=== PATIENT | male | born 1985 | race Hispanic/Latino ===

== ENCOUNTER 2018-08-06 17:34 | Emergency (ER) | payer SELFPAY ==
[2018-08-06] MEDS ORDERED: Dexamethasone 10 MG/ML VIAL ONE (17:57)
[2018-08-06] MEDS ORDERED: Acetaminophen 500 MG TAB ONE (17:57)
[2018-08-06] MEDS ORDERED: Ketorolac Tromethamine 60 MG/2 ML VIAL ONE (17:57)
[2018-08-06] MEDS ORDERED: AMOXicillin 250 MG CAP ONE (18:15)
== END 2018-08-06 18:20 | disposition home or self-care (01) ==
LOC: MADERS 17:34
DX: J02.9 Acute pharyngitis, unspecified (principal)
CPT/HCPCS: 87081; 87430; 87804; 96372; J1100; J1885

== ENCOUNTER 2018-12-25 14:13 | Outpatient (CLI) | payer OTHER ==
--- NOTE | 2018-12-25 14:27 | RAD ---
EXAM: Chest 2 views: HISTORY: Chest pain for 3 months COMPARISON: None. FINDINGS: There is a normal-sized cardiomediastinal silhouette. There is no evidence of consolidation, mass, or pleural effusion. The bones are unremarkable. IMPRESSION: No evidence of acute cardiopulmonary disease
== END 2018-12-25 14:14 | disposition home or self-care (01) ==
LOC: MADRAD 14:13
PROVIDERS: ATTEND Family Medicine
DX: S29.9XXA Unspecified injury of thorax, initial encounter (principal); R07.89 Other chest pain
CPT/HCPCS: 71046

== ENCOUNTER 2020-11-20 13:37 | Emergency (ER) | payer OTHER, SELFPAY ==
[2020-11-20] MEDS ORDERED: HYDROcodone/Acetaminophen 5/325 mg Tablet ONE (14:19)
== END 2020-11-20 14:33 | disposition home or self-care (01) ==
LOC: MADERS 13:37
DX: S43.102A Unspecified dislocation of left acromioclavicular joint, initial encounter (principal); S16.1XXA Strain of muscle, fascia and tendon at neck level, initial encounter; V49.9XXA Car occupant (driver) (passenger) injured in unspecified traffic accident, initial encounter

== ENCOUNTER 2021-04-03 14:38 | Emergency (ER) | payer SELFPAY ==
[2021-04-03] MEDS ORDERED: Acetaminophen 500 MG TAB ONE (15:07)
[2021-04-03] MEDS ORDERED: Cyclobenzaprine 10 MG TAB ONE (15:07)
[2021-04-03] MEDS ORDERED: Ketorolac Tromethamine 60 MG/2 ML VIAL ONE (15:07)
== END 2021-04-03 15:35 | disposition home or self-care (01) ==
LOC: MADERS 14:38
DX: M62.830 Muscle spasm of back (principal); K21.9 Gastro-esophageal reflux disease without esophagitis
CPT/HCPCS: 96372; 99283; J1885